=== PATIENT | female | born 1980 | race Caucasian/White ===

== ENCOUNTER 2016-12-21 22:06 | Emergency (ER) | payer OTHER ==
[~2016-12-21] VITALS: Ht 162.6 cm; Wt 90.0 kg
[~2016-12-21 22:06] MED LIST: PRLSR20 PO; SULI200T4 PO; TRAZ1TAB8 PO
[2016-12-21 22:15] VITALS: TEMP 37.2; Ht 162.6 cm; Wt 90.0 kg
[2016-12-22] MEDS ORDERED: CLOTRIMAZOLE 1% CR 15 GM TUBE EXT ONE
[2016-12-22 00:03] VITALS: BP 122/74; PULSE 71; O2SAT 98
--- NOTE | 2016-12-22 04:14 | EMERGENCY ROOM VISIT NOTE ---
History First contact with patient: 22:15 Chief Complaint: ELBOW PAIN/INJURY Stated Complaint: RT ELBOW PAIN History of Present Illness The patient is a 36 year old female who presents to the Emergency Room with complaints of right elbow pain for the past 2 months. The patient states that she recently moved into a new place, and was cleaning cabinets in the kitchen. She was on top of the counter, when she fell, and landed onto her elbow. This occurred about 9 weeks ago, and the patient has not sought medical attention until now. She is able to flip her hand over and back, but states that she is not able to fully extend the arm. She does not have numbness or tingling. No other injuries. Additionally she reports a persistent rash of her feet. She did try an dage-zrc-sltoaza athlete's foot medication for a few days without any relief. She does not have other complaints and rates her discomfort a 5/10 that worsens with movement. Review of Systems More than 10 systems were reviewed and otherwise negative with the exception of history of present illness. Past Medical/Surgical History Medical Problems: (1) Bronchitis (2) Colon cancer Family History No pertinent family history Social History Smoking Status: Current Every Day Smoker Alcohol Use: occasionally Marital Status: Housing Status: lives with family Current/Historical Medications Scheduled Trazodone Hcl (Desyrel), 100 MG PO HS Physical Exam Vital Signs Date Time Temp Pulse Resp B/P (MAP) Pulse Ox O2 Delivery O2 Flow Rate FiO2 12/22/16 00:03 71 16 122/74 98 12/21/16 22:15 37.2 87 20 129/86 97 Room Air Physical Exam VITALS: Vitals are noted on the nurse's note and reviewed by myself. Vital signs stable. GENERAL: Well-developed, well-nourished, white female, who is in no acute distress and resting comfortably. Patient is cooperative with the examination. HEART: Regular rate and rhythm without murmurs gallops or rubs. LUNGS: Clear to auscultation bilaterally without wheezes, rales or rhonchi. No retractions or accessory muscle use. MUSCULOSKELETAL: No significant erythema or edema appreciated in or around the right elbow. The patient is without significant tenderness. She is able to supinate and pronate against resistance. She has full flexion, however she is unable to fully extend. No obvious paresthesias and neurovascular status appears intact distally. NEURO: Patient was alert and oriented to person place and time. CN II through XII grossly intact. Deep tendon reflexes 2+ throughout. SKIN: The skin of the feet appears with an erythematous blanching rash appreciated between the toes and ball of the feet consistent with fungal infection. Medical Decision & Procedures ED Course Physical exam and history were performed. Nursing notes, EMR, and Medication List were personally reviewed. Patient appears to have right elbow pain after falling 2 months ago. X-ray was obtained and does not show distinct or obvious fracture. Overall the patient's injury may have healed since the initial injury, and I feel that she should follow with orthopedics as she has had persisting discomfort. The patient will be given an initial application of Lotrimin for the rash of her feet. I do suspect this is fungal in nature, and may take 2-4 weeks to resolve. The patient was otherwise treated conservatively with [id number] analgesics. She was otherwise invited back to the ER anytime. The chart was completed utilizing [employer] Voice Recognition Software. Grammatical errors, random word insertions, pronoun errors, and incomplete sentences are an occasional consequence of this system due to software limitations, ambient noise, and hardware issues. Any formal questions or concerns about the content, text, or information contained within the body of this dictation should be directly addressed to the provider for clarification. . Medical Decision Differential diagnosis includes, but is not limited to: Sprain, strain, fracture , dislocation, subluxation, contusion, cellulitis, fungal infection, yeast infection, and others Blood Pressure Screening Patient's blood pressure: Normal blood pressure Impression Primary Impression: Injury of right elbow Additional Impression: Rash Departure Information Dispostion Home / Self-Care Condition GOOD Referrals Travon Kramer MD Forms HOME CARE DOCUMENTATION FORM, IMPORTANT VISIT INFORMATION Patient Instructions My [facility] Additional Instructions You were seen and evaluated today on an emergency basis only. This is not a substitute for, or an effort to provide, complete comprehensive medical care. It is not possible to recognize and treat all injuries or illnesses in a single emergency department visit. For this reason it is recommended that you followup with [facility] , Dr Kramer's office, in the next week regarding your right elbow. For baseline pain relief you may alternate ibuprofen and acetaminophen every 4 hours for pain control. Take 600 mg ibuprofen (Advil) and then 4 hours later take 1000 mg acetaminophen (Tylenol). Do not take more than 3000 mg acetaminophen in a single day. Use [id number] Lotrimin twice daily for the rash on your feet. It may take 4 weeks for this to improve. You are welcome to return to the emergency department anytime with new, worsening, or concerning symptoms. Problem Qualifiers
--- NOTE | 2016-12-22 06:58 | DIAGNOSTIC IMAGING REPORT ---
RIGHT ELBOW 3 VIEWS CLINICAL HISTORY: Right elbow injury 2 months ago. FINDINGS: 3 views of the right elbow are obtained. No prior studies are available for comparison at the time of dictation. The skeletal structures are well mineralized. No fracture is seen. The joint spaces of the elbow are well-maintained. No joint effusion is identified. The overlying soft tissues are within normal limits. IMPRESSION: Unremarkable radiographic assessment of the right elbow. Electronically signed by: Chon Elias M.D. 12/22/2016 6:56 AM Dictated Date/Time: 12/22/2016 6:56 AM
== END 2016-12-22 00:04 | disposition home or self-care (01) ==
LOC: C.EDB 22:07
DX: S59.901A Unspecified injury of right elbow, initial encounter (principal); R21 Rash and other nonspecific skin eruption; F17.200 Nicotine dependence, unspecified, uncomplicated; W17.89XA Other fall from one level to another, initial encounter; Y93.E5 Activity, floor mopping and cleaning; Y92.000 Kitchen of unspecified non-institutional (private) residence as the place of occurrence of the external cause; Z85.038 Personal history of other malignant neoplasm of large intestine